=== PATIENT | male | born 1995 | race Caucasian/White ===

== ENCOUNTER → 2018-10-04 | Outpatient (REF) | payer BC ==
[2018-10-04 17:36] LABS: AMORPHOUS SEDIMENT SMALL (NEGATIVE); APPEARANCE, URINE TURBID (CLEAR); BACTERIA, URINE AUTO NEGATIVE (NEGATIVE); BILIRUBIN, URINE AUTO NEGATIVE (NEGATIVE); BLOOD, URINE BLOOD NEGATIVE (NEGATIVE); COLOR, URINE YELLOW (YELLOW); GLUCOSE, URINE (UA) AUTO NEGATIVE (NEGATIVE); KETONE, URINE AUTO NEGATIVE (NEGATIVE); LEUKOCYTE ESTERASE, URINE AUTO NEGATIVE (NEGATIVE); MUCUS, URINE SMALL (NEGATIVE); NITRITE, URINE AUTO NEGATIVE (NEGATIVE); PROTEIN, URINE AUTO NEGATIVE (NEGATIVE); RBC, URINE AUTO 0 /HPF (0-3); SPECIFIC GRAVITY URINE AUTO 1.033 (1.002-1.035); SQUAMOUS EPITHELIAL CELL UR AU 0 /HPF (0-6); WBC, URINE AUTO 0 /HPF (0-3)
== END ==
LOC: M LAB REF 16:37
DX: N39.0 Urinary tract infection, site not specified (principal)

== ENCOUNTER → 2018-10-05 | Outpatient (CLI) | payer BC | LOC: M RAD 11:08 | DX: N50.811 Right testicular pain (principal); N50.3 Cyst of epididymis; K40.20 Bilateral inguinal hernia, without obstruction or gangrene, not specified as recurrent | CPT/HCPCS: 76870 ==

== ENCOUNTER → 2018-10-05 | Outpatient (REF) | payer BC | LOC: M SMT 17:29 | DX: R30.9 Painful micturition, unspecified (principal); R10.30 Lower abdominal pain, unspecified | CPT/HCPCS: 87086 ==